=== PATIENT | male | born 1955 | race African-American/Black ===

== ENCOUNTER 2024-06-15 07:41 | Emergency (ER) | payer OTHER ==
[2024-06-15 07:50] VITALS: RESP 18; TEMP 97.8; BMI 23.8
[2024-06-15] MEDS ORDERED: METOCLOPRAMIDE HCL 10 MG TABLET (FP) PO ONE (08:16)
[2024-06-15] MEDS: METOCLOPRAMIDE HCL 10 MG TABLET (FP) PO ONE (08:20)
[2024-06-15 11:37] VITALS: BP 125/77; PULSE 46
== END 2024-06-15 11:53 | disposition home or self-care (01) ==
LOC: JER 07:41
DX: R51.9 Headache, unspecified (principal)
CPT/HCPCS: 70450-TC; 99284-25